=== PATIENT | female | born 1955 | race Caucasian/White ===

== ENCOUNTER 2018-11-06 17:27 | Emergency (ER) | payer MEDICARE, OTHER ==
[~2018-11-06] VITALS: Ht 165.1 cm; Wt 53.5 kg
--- NOTE | 2018-11-06 17:47 | NUR ---
PT BIBSELF FROM HOME FOR FACIAL SWELLING, SX SITE ON SCALP AREA, PT AAOX4, PT IS LEGALLY BLIND, PT ON MONITOR, VSS, NAD NOTED, PENDING ER PROVIDER ALISHA
[2018-11-06 18:27] LABS: BASOPHILS % (AUTO) 0.2 % (0.0-2.0); EOSINOPHILS % (AUTO) 0.5 % (0.0-6.0); HEMATOCRIT 38 % (33-45); HEMOGLOBIN 12.6 g/dL (11.5-14.8); LYMPHOCYTES # (AUTO) 0.9 /CMM (0.8-4.8); LYMPHOCYTES % (AUTO) 6.5 % (20.0-44.0); MEAN CORPUSCULAR HGB CONC 33 g/dl (31.0-36.0); MEAN CORPUSCULAR VOLUME 94 fL (82-100); MONOCYTES # (AUTO) 1.5 /CMM (0.1-1.30); MONOCYTES % (AUTO) 10.5 % (2.0-12.0); NEUTROPHILS % (AUTO) 82.3 % (43.0-81.0); PLATELET COUNT (AUTO) 390 /CMM (150-450); RED BLOOD CELL COUNT(AUTO) 4.03 MIL/uL (4.0-5.2); WHITE BLOOD COUNT (AUTO) 14.5 K/uL (4.3-11.0)
[2018-11-06] MEDS ORDERED: IV NS 0.9% 1,000 ML BAG IV ONE (18:30)
[2018-11-06 18:50] LABS: CREATININE 1.9 mg/dL (0.6-1.3); POTASSIUM 5.8 mmol/L (3.5-5.1)
--- NOTE | 2018-11-06 18:50 | NUR ---
PER DR. CARLSON, HOLD ON PIV AND IV FLUID ORDERS FOR NOW. DO STRAIGHT DRAW. LAB CALLED, AWARE.
[2018-11-06 18:56] LABS: ALBUMIN 3.2 g/dL (3.4-5.0); BILIRUBIN,TOTAL 0.2 mg/dL (0.2-1.0); TOTAL PROTEIN, SERUM 6.9 g/dL (6.4-8.2)
--- NOTE | 2018-11-06 19:24 | NUR ---
er md at bedside, er md aware of pt refusing IVF. pt aaox4 no acute distress noted, resp even and unlabored.
[2018-11-06 19:26] LABS: BILIRUBIN,URINE Negative (NEGATIVE); BLOOD, URINE Small Ery/uL (NEGATIVE); COLOR,URINE Yellow (YELLOW); KETONES,URINE Negative (NEGATIVE); LEUKOCYTE ESTERASE ,URINE Small (NEGATIVE); NITRITE, URINE Negative (NEGATIVE); PROTEIN,URINE 30 mg/dl (NEGATIVE); UGLUCOSE Negative (NEGATIVE); UROBILINOGEN,URINE 0.2 EU/dL (0.2)
--- NOTE | 2018-11-06 19:31 | NUR ---
REPORT GIVEN TO ED FOR ALEXANDER
[2018-11-06 19:42] LABS: APPEARANCE,URINE HAZY (CLEAR)
[2018-11-06 19:44] LABS: BACTERIA,URINE Rare /HPF (None Seen); SQUAMOUS EPITHELIAL CELL,UR Moderate /HPF (None Seen)
[2018-11-06 19:50] VITALS: BP 137/76
--- NOTE | 2018-11-06 19:58 | NUR ---
PT REFUSE KAYEXALATE 30GM PO, ER MADE AWARE.
[2018-11-06] MEDS ORDERED: SODIUM POLYSTYRENE SULF. PWD 15 GM UDC PO ONE (20:00)
[2018-11-06] MEDS ORDERED: SODIUM POLYSTYRENE SULFONATE 15 G/60 ML BOTTLE ONE (20:09)
--- NOTE | 2018-11-06 20:54 | NUR ---
PT REFUSING TO SIGN AMA PAPER BUT REFUSES TO SALINE LOCK, IVF, AND IV MEDS. PT STATES "I AM NOT SIGNING THAT BECAUSE I DIDNT GET MY PROGRAFT" ER MD AT BEDSIDE TALKING TO PT AND STATES "IF I CANT GET YOUR PROGRAFT WOULD YOU STAY AND THE PATINET STILL REMAINS TO REFUSE ADMISSION AND WANTS TO LEAVE AMA BUT STILL REFUSES TO SIGN". ACI WITH RX GIVEN TO PT.
--- NOTE | 2018-11-06 21:20 | NUR ---
TAXI VOUCHER PROVIDED TO PT PER PT REQUEST.
== END 2018-11-06 21:21 | disposition left against medical advice (07) ==
LOC: ER 17:27
DX: N17.9 Acute kidney failure, unspecified (principal); E87.5 Hyperkalemia; N39.0 Urinary tract infection, site not specified; H54.8 Legal blindness, as defined in USA; J45.909 Unspecified asthma, uncomplicated; R00.0 Tachycardia, unspecified; R79.89 Other specified abnormal findings of blood chemistry; E87.1 Hypo-osmolality and hyponatremia; Z94.0 Kidney transplant status; Z85.038 Personal history of other malignant neoplasm of large intestine; Z88.0 Allergy status to penicillin; Z88.6 Allergy status to analgesic agent; Z88.8 Allergy status to other drugs, medicaments and biological substances; Z88.4 Allergy status to anesthetic agent
CPT/HCPCS: 36415; 71045; 80053; 81001; 83605; 84484; 85025; 85730; 87040 ×2; 87086; 93005; 99284; J7030; 81000-TC